=== PATIENT | female | born 1935 | race Caucasian/White ===

== ENCOUNTER 2018-06-09 14:06 | Emergency (ER) | payer MEDICARE ==
[~2018-06-09] VITALS: Ht 167.6 cm; Wt 68.0 kg
[~2018-06-09 14:06] MED LIST: ASPIR 8181 MG ORAL
--- NOTE | 2018-06-09 14:10 | NUR ---
ED Nurse Note: pt was brought in to ER by ambulance after falling on the street. pt aao x4 and BP is elevated to systolic 170 which pt stated it is because of her emotional trauma from the fall. skin clean and intact and pt is ambulatory. pt has laceration on chin.
[2018-06-09 14:16] VITALS: BP 169/72
[2018-06-09] MEDS ORDERED: Lidocaine 2% Visc 15ml soln ORAL STA (14:27)
[2018-06-09] MEDS ORDERED: Acetaminophen 500mg (ES) tab PO ONE (14:30)
[2018-06-09] MEDS ORDERED: Lidocaine 1% 10mg/ml/Epi 0.005mg/ml 30ml vial INJ ONE (14:30)
[2018-06-09] MEDS ORDERED: Bacitracin Oint UD TOPIC ONE (14:30)
--- NOTE | 2018-06-09 14:36 | NUR ---
ED Nurse Note: Lidocaine 1% epi was out of stock. called pharmacy and Christiano will bring some in.
--- NOTE | 2018-06-09 15:30 | NUR ---
ED Nurse Note: ALEXD is performing stiches at bedside.
--- NOTE | 2018-06-09 16:00 | NUR ---
ED Nurse Note: stiches done by AMALIA. pt tolerated well.
[2018-06-09 16:01] VITALS: BP 167/77
--- NOTE | 2018-06-09 16:20 | Emergency Room Report ---
History of Present Illness General Chief Complaint: Multiple Trauma/Fall Source: Patient Present Illness HPI The patient was walking on uneven ground and tripped and fell. She hit her chin and landed on her hands and knees also. She denies loss of consciousness. She cut her chin and there is quite a lot of bleeding which was controlled with pressure and dressing. She is not taking blood thinner at this time. Complains about chin pain and mild knee pain. She also has slight left shoulder pain. 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 The main pain she feels is in the chin. She rates his pain 4/10, sharp and aching. She denies jaw pain in her teeth are not chipped. No headache, neck pain, chest pain, palpitations, nausea, vomiting, diarrhea, change in vision or dysuria. She fell a week and a half ago and she did her left forehead. There is a resolving bruise there and also scraped. She denies loss of consciousness at that time. Allergies: Coded Allergies: No Known Allergies (Unverified , 06/09/18) Patient History Past Medical History: see triage record Past Surgical History: other - Knee replacement, shoulder replacement Social History: Denies: smoking, alcohol use, drug use Social History Narrative Elected member of [employer] -born in [place]. 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 Reviewed Nursing Documentation: PMH: Agreed; PSxH: Agreed Nursing Documentation-PMH Past Medical History: No History, Except For Review of Systems All Other Systems: negative except mentioned in HPI Physical Exam Vital Signs Date Time Temp Pulse Resp B/P (MAP) Pulse Ox O2 Delivery O2 Flow Rate FiO2 06/09/18 13:59 98.4 82 16 176/106 98 06/09/18 16:01 Room Air Sp02 EP Interpretation: reviewed, normal General Appearance: well appearing, no apparent distress, alert, GCS 15 Head: normocephalic, other - Old hematoma left forehead with biliverden Eyes: bilateral eye normal inspection, bilateral eye PERRL, bilateral eye EOMI ENT: moist mucus membranes, other - Teeth intact and not loose Neck: full range of motion, supple, no bony tend Respiratory: chest non-tender, lungs clear, normal breath sounds Cardiovascular #1: regular rate, rhythm Cardiovascular #2: 2+ radial (R) Gastrointestinal: normal inspection, normal bowel sounds, non tender, no mass, non-distended Musculoskeletal: back normal, gait/station normal, normal range of motion, pelvis stable, tender - Bilateral bilateral knees with intact ligaments, active range of motion of left shoulder full with no crepitance or deformity Neurologic: alert, oriented x3, coil assembler III-XII nml as tested, motor strength/tone normal, DTRs symmetric, sensory intact, cerebellar normal, normal gait, speech normal Psychiatric: mood/affect normal Skin: normal inspection, normal color, warm/dry, abrasions - Bilateral knees, laceration - Lower lip and below chin Procedures Laceration/Wound Repair Laceration/Wound Repair #1: Consent: Verbal Wound Location: face Wound's Depth, Shape: into muscle Wound Length (cm): 2 Wound Explored: clean Irrigated w/ Saline (ccs): 20 Betadine Prep?: Yes Anesthesia: Lidocaine w/ Epi Volume Anesthetic (ccs): 1 Wound Debrided: minimal Wound Repaired With: sutures Suture Size/Type: 6:0, nylon Layer Closure?: Yes Deep Layer Suture Size/Type: 5:0, other - Vicryl Sterile Dressing Applied?: Yes Patient Tolerated: Well Complications: None Laceration/Wound Repair #2: Wound Location: other - Lower lip Wound's Depth, Shape: superficial Wound Length (cm): 1 Wound Explored: clean Irrigated w/ Saline (ccs): 5 Betadine Prep?: No - Hydrogen peroxide Anesthesia: Lidocaine w/ Epi Volume Anesthetic (ccs): 0 - 0.5 Wound Debrided: Wound Repaired With: sutures - None Suture Size/Type: 6:0, nylon Layer Closure?: No Patient Tolerated: Well Complications: None Progress After prep and anesthesia and irrigation, one deep suture placed. After irrigation again subcuticular sutures placed with good approximation. The lip laceration was prepped with hydrogen peroxide and irrigated. Single layer closure approximate this wound. Medical Decision Making Diagnostic Impression: Primary Impression: Multiple injuries due to trauma Additional Impressions: Facial laceration Qualified Codes: S01.81XA - Laceration without foreign body of other part of head, initial encounter Lip laceration Qualified Codes: S01.511A - Laceration without foreign body of lip, initial encounter Bilateral knee contusions Hand contusions and abrasions Contusion of left shoulder Qualified Codes: S40.012A - Contusion of left shoulder, initial encounter ER Course Patient presents post non-syncopal fall with multiple contusions and lacerations. Based on the history and physical exam no imaging is indicated. Sutures are indicated. The patient is given Tylenol. Tetanus is reported up-to -date. Patient tolerated suturing well. The chin laceration was 3 layer cosmetic closure. She was starting to have some increased aches but declined further analgesia at this time. Treatment plan was discussed with the patient and her son. Patient stable for outpatient observation and treatment. Rhythm Strip Diag. Results EP Interpretation: yes Rhythm: NSR, no PVC's, no ectopy Last Vital Signs Date Time Temp Pulse Resp B/P (MAP) Pulse Ox O2 Delivery O2 Flow Rate FiO2 06/09/18 16:30 97.5 80 16 156/72 100 Room Air Status: improved Disposition: HOME, SELF-CARE Condition: Improved Scripts Bacitracin (Bacitracin) 28.4 Gm Oint...g. 1 APPLIC TOPIC BID, #20 GM Prov: Loco Dorsey MD 06/09/18 Ibuprofen* (MOTRIN*) 600 Mg Tablet 600 MG ORAL Q6H PRN for For Pain, #12 TAB Prov: Loco Dorsey MD 06/09/18 Referrals: NON PHYSICIAN (PCP) Loco Dorsey MD Jun 09, 2018 16:20
[2018-06-09] MEDS ORDERED: BACITRACIN15 GM TOPIC (16:23)
[2018-06-09] MEDS ORDERED: IBUPROFEN600 MG ORAL (16:23)
[2018-06-09 16:30] VITALS: BP 156/72
--- NOTE | 2018-06-09 16:31 | NUR ---
ER DISCHARGE NOTE: Patient is cleared to be discharged per ERMD, pt is aox4, accompanied by son, on room air, with stable vital signs. pt was given dc and prescription instructions, pt was able to verbalize understanding, pt has stiches on chin and lower lip, pt id band removed. pt is able to ambulate with steady gait. pt took all belongings.
== END 2018-06-09 16:32 | disposition home or self-care (01) ==
LOC: EDBD 14:06 → EMR 14:56
DX: S01.511A Laceration without foreign body of lip, initial encounter (principal); S01.81XA Laceration without foreign body of other part of head, initial encounter; S80.02XA Contusion of left knee, initial encounter; S80.01XA Contusion of right knee, initial encounter; S40.012A Contusion of left shoulder, initial encounter; S60.229A Contusion of unspecified hand, initial encounter; S00.83XA Contusion of other part of head, initial encounter; W01.0XXA Fall on same level from slipping, tripping and stumbling without subsequent striking against object, initial encounter; Y92.89 Other specified places as the place of occurrence of the external cause; Z96.611 Presence of right artificial shoulder joint
CPT/HCPCS: 99284